=== PATIENT | female | born 1970 | race Caucasian/White ===

== ENCOUNTER 2022-12-10 15:18 | Emergency (ER) | payer MEDICAID ==
[~2022-12-10] VITALS: Ht 167.6 cm; Wt 63.6 kg
--- NOTE | 2022-12-10 16:32 | NUR ---
When I interviewed patient, she was crying because she was brought here to the ER. She states "I can't believe I'm here and he told them I'm crazy!" Patient was brought in by the superintendent local with a 5150 written for danger to self and others. During the suicide risk assessment interview, I asked the patient if she currently has suicidal ideation, she denied it but said to me "I want to kill someone!". I asked her who she wanted to kill, she said to me "the one who hurt my dog!". Patient 's speech fast, disorganized with flight of ideas, and has poor grooming. Patient has been making nonsensical statement frequently with mood swings from being sad to crying episode.
[2022-12-10 17:26] LABS: BASOPHILS # (AUTO) 0.1 X10'3 (0-0.2); BASOPHILS % (AUTO) 0.6 % (0-1); EOSINOPHILS % (AUTO) 0.5 % (0-6); HEMATOCRIT 38.7 % (35.0-45.0); HEMOGLOBIN 12.1 g/dl (12.0-16.0); LYMPHOCYTES # (AUTO) 1.3 X10'3 (1.1-4.8); MEAN CORPUSCULAR HEMOGLOBIN 25.9 PG (27.0-31.0); MEAN CORPUSCULAR HGB CONC 31.3 g/dL (33.0-36.5); MEAN CORPUSCULAR VOLUME 82.8 FL (78-98); MEAN PLATELET VOLUME 8.3 FL (7.4-10.4); MONOCYTES # (AUTO) 0.5 X10'3 (0-0.9); MONOCYTES % (AUTO) 5.3 % (2-12); NEUTROPHILS # (AUTO) 6.7 X10'3 (1.8-7.7); NEUTROPHILS % (AUTO) 78.6 % (42-75); PLATELET COUNT 343 X10'3 (140-440); RED BLOOD COUNT 4.67 X10'6 (4.20-5.60); RED CELL DISTRIBUTION WIDTH 15.6 % (11.5-14.5); WHITE BLOOD COUNT 8.5 X10'3 (4.5-11.0)
[2022-12-10 17:27] LABS: URINE HCG NEGATIVE (NEG)
[2022-12-10 17:32] LABS: CLARITY,URINE CLOUDY (Clear); COLOR,URINE YELLOW (Yellow); GLUCOSE, URINE NEGATIVE (Neg); KETONES,URINE NEGATIVE (Neg); LEUKOCYTE ESTERASE ,URINE MODERATE (Neg); NITRITES, URINE NEGATIVE (Neg); OCCULT BLOOD,URINE SMALL (Neg); PROTEIN,URINE TRACE mg/dl (Neg); UROBILINOGEN,URINE 0.2 E.U/dL (0.2-1.0)
[2022-12-10 17:37] LABS: ALANINE AMINOTRANSFERASE 19 U/L (12-78); ALBUMIN 3.9 G/DL (3.4-5.0); ALKALINE PHOSPHATASE 92 IU/L (46-116); ANION GAP 7 (8-16); ASPARTATE AMINO TRANSFERASE 18 U/L (10-37); BILIRUBIN,TOTAL 0.6 MG/DL (0.1-1.0); BLOOD UREA NITROGEN 16 MG/DL (7-18); BUN/CREATININE RATIO 16.3 (10.0-20.0); CALCIUM 9.4 MG/DL (8.5-10.1); CHLORIDE 105 MMOL/L (99-107); CREATININE 0.98 MG/DL (0.40-0.90); GLUCOSE 88 MG/DL (70-104); POTASSIUM 4.1 MMOL/L (3.5-5.1); SODIUM 140 MMOL/L (135-145); TOTAL PROTEIN 7.7 G/DL (6.4-8.2); eGFR 60 ML/MIN
[2022-12-10 17:38] LABS: UA COLLECTION TYPE CLN CATCH MIDSTREAM
[2022-12-10 17:40] LABS: AMORPHOUS URATES 1+
[2022-12-10 17:41] LABS: SQUAMOUS EPITHELIAL CELL,UR MANY /LPF (FEW); WBC,URINE TNTC /HPF (0-4)
[2022-12-10 17:42] LABS: RBC,URINE NONE SEEN /HPF (0-2)
[2022-12-10 17:43] LABS: BACTERIA,URINE 3+ /HPF (Neg)
[2022-12-10 17:45] LABS: ETHANOL < 0.010 GM/DL (0.0-0.010)
[2022-12-10 17:49] LABS: URINE AMPHETAMINE SCREEN NEGATIVE (Neg); URINE BARBITUATE SCREEN NEGATIVE (Neg); URINE BENZODIAZEPINES SCREEN NEGATIVE (Neg); URINE CANNABINOID SCREEN NEGATIVE (Neg); URINE COCAINE SCREEN NEGATIVE (Neg); URINE METHADONE SCREEN NEGATIVE (Neg); URINE OPIATE SCREEN NEGATIVE (Neg); URINE PHENCYCLIDINE SCREEN NEGATIVE (Neg)
[2022-12-10] MEDS ORDERED: FOSFOMYCIN TROMETHAMINE 3 GM PACKET PO ONE (18:05)
[2022-12-10] MEDS ORDERED: CefTRIAXone 1000mg IM Kit (w/lidocaine diluent) IM ONE (18:05)
--- NOTE | 2022-12-10 18:21 | NUR ---
patient is more calmer at this time and cooperative.
[2022-12-10] MEDS ORDERED: acetaminophen 325mg tablet PO ONE (20:05)
--- NOTE | 2022-12-10 23:59 | NUR ---
Pt asked for a sleeping med, Dr. García prefers ambien 10 mg, so ordered, pt updated on this and she is thankful.
[2022-12-11] MEDS ORDERED: zolpidem 5mg tablet PO ONE
--- NOTE | 2022-12-11 06:34 | NUR ---
Pt resting laying on left side, effortless respirations observed.
--- NOTE | 2022-12-11 09:37 | NUR ---
Pt was seen by [facility] reimbursement analyst Dallin. Pts 5150 is being continued.
--- NOTE | 2022-12-11 12:36 | NUR ---
Assumed care from RN Pt in stable condition. Pt laying on her back on [address]. Pt educated to POC. Pt in agreement.
[2022-12-11 13:29] VITALS: BP 144/85
--- NOTE | 2022-12-11 13:42 | NUR ---
Pt up in bed eating lunch. Pt was tearful but unable to say why.
--- NOTE | 2022-12-11 14:29 | NUR ---
Spoke to Justin. LN is presenting to MD. Pt has been notified.
--- NOTE | 2022-12-11 15:32 | NUR ---
Pt cleaned her self up. Brushed her teeth, brushed her hair, changed her srubs.
--- NOTE | 2022-12-11 16:05 | NUR ---
RECEIVED CALL FROM [facility], PT HAS BEEN ACCEPTED TO [facility] BY DR. HAILE. ETA FOR TRANSPORT IS AROUND [address] THIS [address]UAN MANUEL.
--- NOTE | 2022-12-11 17:45 | NUR ---
Pt pacing around room. Pt states someone else needs her bed more than her.
== END 2022-12-11 19:59 | disposition still patient (30) ==
LOC: EDBD 15:18 → ER 15:21 → EDBD 15:21 → ER 12-11 19:59
DX: Z13.30 Encounter for screening examination for mental health and behavioral disorders, unspecified (principal); Z20.822 Contact with and (suspected) exposure to COVID-19; N39.0 Urinary tract infection, site not specified
CPT/HCPCS: 36415; 80053; 80305; 80320; 81001; 81025; 84443; 85025; 87811; 96372; 99285; J0696

== ENCOUNTER 2022-12-31 08:43 | Emergency (ER) | payer MEDICAID ==
[~2022-12-31] VITALS: Ht 167.6 cm; Wt 68.2 kg
[2022-12-31 08:58] VITALS: BP 125/78
[2022-12-31] MEDS ORDERED: PENI250T2 PO (09:50)
[2022-12-31] MEDS ORDERED: NAPR-56 PO (09:50)
== END 2022-12-31 09:57 | disposition home or self-care (01) ==
LOC: ER 08:44
DX: K04.7 Periapical abscess without sinus (principal)
CPT/HCPCS: 99283